=== PATIENT | male | born 1990 | race Caucasian/White ===

== ENCOUNTER 2021-09-17 21:41 | Inpatient (IN) | payer BC ==
[~2021-09-17] VITALS: Ht 177.8 cm; Wt 77.1 kg
[2021-09-17] MEDS ORDERED: MORPHINE SULFATE 4 MG/ML CPJ (NOT FOR IM USE) IV STA (22:36)
[2021-09-17] MEDS ORDERED: ONDANSETRON HCL 4MG/2ML INJ IV STA (22:36)
[2021-09-18 00:05] LABS: BASOPHILS % 0.2 % (0.0-2.0); EOSINOPHILS % 0.3 % (0.0-5.0); HEMATOCRIT. 41.9 % (42.0-52.0); HEMOGLOBIN. 14.2 g/dL (14.0-18.0); LYMPHOCYTES % 12.3 % (20.0-50.0); MEAN CORPUSCULAR HEMOGLOBIN 30.4 pg (28.0-32.0); MEAN CORPUSCULAR VOLUME 89.5 fL (80.0-94.0); MEAN PLATELET VOLUME 7.4 fl (7.4-10.4); MONOCYTES % 7.5 % (2.0-8.0); NEUTROPHILS % 79.7 % (40.0-76.0); PLATELET 225 x1000/uL (130-400); RED BLOOD CELL COUNT 4.68 mill/uL (4.7-6.1); RED CELL DISTRIBUTION WIDTH 13.3 % (11.6-14.6)
[2021-09-18 00:12] LABS: CHLORIDE 107 mEq/L (98-107)
[2021-09-18] MEDS ORDERED: MIDAZOLAM HCL 2 MG/2 ML VIAL IV ONE (00:45)
[2021-09-18] MEDS ORDERED: FENTANYL CITRATE/PF 50MCG/ML 2ML VIAL IV ONE ×2 (00:45→01:00)
[2021-09-18] MEDS ORDERED: MORPHINE SULFATE 4 MG/ML CPJ (NOT FOR IM USE) IV ONE (01:15)
[2021-09-18] MEDS ORDERED: NALOXONE HCL 0.4 MG/ML 1ML VIAL IV PRN (04:00)
[2021-09-18] MEDS: HYDROCODONE/ACETAMINOPHEN 10/325MG TABLET PO PRN (04:06)
[2021-09-18] MEDS: MORPHINE SULFATE 2 MG/ML CPJ (NOT FOR IM USE) IV PRN ×3 (06:11→18:13)
[2021-09-18 08:40] VITALS: BP 124/80
[2021-09-18] MEDS ORDERED: ACETAMINOPHEN 325MG TABLET PO PRN (08:45)
[2021-09-18] MEDS ORDERED: ONDANSETRON HCL 4MG/2ML INJ IV PRN (08:45)
[2021-09-18] MEDS ORDERED: VANCOMYCIN HCL 1 GM/VIAL ONE (11:10)
[2021-09-18] MEDS ORDERED: LIDOCAINE HCL/EPINEPHRINE 1%-EPI 1:100,000 20 ML VIAL ONE (11:10)
[2021-09-18] MEDS ORDERED: POLYMYXIN B SULFATE 500000 UNITS/VIAL ONE ×2 (11:11→11:51)
[2021-09-18] MEDS ORDERED: MIDAZOLAM HCL 2 MG/2 ML VIAL ONE (12:23)
[2021-09-18] MEDS ORDERED: PROPOFOL 200MG/20ML VIAL IV ONE (12:23)
[2021-09-18] MEDS ORDERED: FENTANYL CITRATE/PF 50MCG/ML 2ML VIAL ONE (12:23)
[2021-09-18] MEDS ORDERED: LIDOCAINE HCL/PF 1% 10 MG/ML 5ML VIAL ONE (12:24)
[2021-09-18] MEDS ORDERED: ROPIVACAINE HCL 10MG/ML 20 ML VIAL EPI ONE (12:40)
[2021-09-18] MEDS ORDERED: GENTAMICIN SULF 40MG/ML 2ML VIAL ONE (12:53)
[2021-09-18] MEDS ORDERED: HYDROMORPHONE HCL/PF 2MG/ML (OR) ONE (13:40)
[2021-09-18] MEDS ORDERED: SODIUM CHLORIDE 0.9% 10ML VIAL ONE (14:53)
[2021-09-18] MEDS ORDERED: CEFAZOLIN SODIUM 1000MG/VIAL ONE (14:53)
[2021-09-18] MEDS ORDERED: ONDANSETRON HCL 4MG/2ML INJ ONE (15:32)
[2021-09-18 16:00] VITALS: BP 121/83
[2021-09-18 19:39] VITALS: BP 124/80
[2021-09-18 20:00] VITALS: BP 139/80
[2021-09-18] MEDS ORDERED: CEFAZOLIN SODIUM 1000MG/VIAL IV SCH (22:00)
[2021-09-18] MEDS: CEFAZOLIN 1000MG PREMIX 50 ML IV SCH (22:24)
[2021-09-19] VITALS: BP 131/74
[2021-09-19] MEDS: MORPHINE SULFATE 2 MG/ML CPJ (NOT FOR IM USE) IV PRN ×2 (01:20→05:09)
[2021-09-19] MEDS: HYDROCODONE/ACETAMINOPHEN 10/325MG TABLET PO PRN (02:34)
[2021-09-19 04:00] VITALS: BP 120/70
[2021-09-19] MEDS: CEFAZOLIN 1000MG PREMIX 50 ML IV SCH (05:15)
[2021-09-19 08:00] VITALS: BP 131/83
[2021-09-19 10:26] VITALS: BP 131/83
[2021-09-19] MEDS ORDERED: DOCU-138 MT (11:01)
[2021-09-19] MEDS ORDERED: HYDR-4009 MT (11:01)
[2021-09-19 11:09] VITALS: BP 131/83
[2021-09-19] MEDS ORDERED: ENOXAPARIN 40MG/0.4ML SYR SUBCUT SCH (12:00)
== END 2021-09-19 12:45 | disposition home or self-care (01) | DRG 493 ==
LOC: ER 21:41 → MICUSO 09-18 01:38 → EDBEDREQ 09-18 01:40 → EDBEDREQTM 09-18 01:40 → 6EST 09-18 08:41
PROVIDERS: ADMIT Internal Medicine; ATTEND Internal Medicine
PROC: 0QSK04Z Reposition Left Fibula with Internal Fixation Device, Open Approach (ICD-10-PCS; principal; 2021-09-18)
PROC: 0QSH04Z Reposition Left Tibia with Internal Fixation Device, Open Approach (ICD-10-PCS; 2021-09-18)
DX: S82.202A Unspecified fracture of shaft of left tibia, initial encounter for closed fracture (principal); Q78.0 Osteogenesis imperfecta; S82.402A Unspecified fracture of shaft of left fibula, initial encounter for closed fracture; Z20.822 Contact with and (suspected) exposure to COVID-19; F17.200 Nicotine dependence, unspecified, uncomplicated; W05.1XXA Fall from non-moving nonmotorized scooter, initial encounter; Y93.89 Activity, other specified; Y92.89 Other specified places as the place of occurrence of the external cause; Y99.8 Other external cause status
CPT/HCPCS: 36415; 73590; 76000; 80053; 85025; 86850; 86900; 87426; 97162; 97166; 99285; C1713; J0690; J1170; J1580; J1650; J2250; J2270; J2405; J2704; J2795; J3010; J3370; J3490; J7040